=== PATIENT | female | born 1975 | race Hispanic/Latino ===

== ENCOUNTER 2022-07-16 06:59 | Day surgery (SDC) | payer BC ==
--- NOTE | 2022-07-15 14:27 | RAD REPORT ---
EXAM DESCRIPTION: Oneyda Trevizo And Lat (2 Views)07/15/2022 2:20 pm CLINICAL HISTORY: Preop for breast surgery COMPARISON: September 2021 FINDINGS: The lungs appear clear of acute infiltrate. The heart is normal size IMPRESSION: No acute abnormalities displayed
[2022-07-15 14:54] LABS: Absolute Lymphocytes (CBC) 2.4 K/uL (0.7-4.9); Hematocrit 39.6 % (36.0-45.0); Lymphocytes % 26.7 % (15.3-44.8); MCV 86.1 fL (80-100); MPV 9.6 fL (7.6-11.3)
[2022-07-15 15:04] LABS: Specific Gravity < 1.005 (1.005-1.030)
[2022-07-15 15:10] LABS: BUN Blood Urea Nitrogen 14 mg/dL (7-18); Bicarbonate 30 mmol/L (21-32); Glomerular Filtration Rate 113 ml/min (=/>90); Glucose Level 100 mg/dL (74-106); Potassium 3.4 mmol/L (3.5-5.1); Sodium Level 139 mmol/L (136-145)
[2022-07-15 16:40] LABS: HCG, Quantitative < 1 mIU/mL (1-3)
[2022-07-16] MEDS ORDERED: Ringers Lactate 1,000 ML IV ONE (07:26)
[2022-07-16] MEDS ORDERED: METHYLENE BLUE 0.5% 10 ML AMP ONE (07:52)
[2022-07-16] MEDS ORDERED: CEFAZOLIN SODIUM 1 GM/VIAL ONE (08:14)
[2022-07-16] MEDS ORDERED: propofoL 200 MG/20 ML VIAL IV ONE (08:56)
[2022-07-16] MEDS ORDERED: MIDAZOLAM HCL 2 MG/2 ML INJ ONE (08:56)
[2022-07-16] MEDS ORDERED: ONDANSETRON 4 MG/2 ML VIAL ONE (08:56)
[2022-07-16] MEDS ORDERED: FENTANYL CITR 100 MCG/2 ML ONE (08:56)
[2022-07-16] MEDS ORDERED: LIDOCAINE 2% MPF 5 ML VIAL ONE (08:56)
[2022-07-16] MEDS ORDERED: dexAMETHasone 10 MG/ML VIAL ONE (10:18)
[2022-07-16] MEDS ORDERED: KETOROLAC 30 MG/ML INJ ONE (10:19)
[2022-07-16] MEDS ORDERED: GLYCOPYRROLATE 0.2 MG/ML SYR ONE (11:03)
--- NOTE | 2022-07-16 11:03 | P.BOP ---
Preoperative diagnosis: right breast mass Postoperative diagnosis: same Primary procedure: Right breast lumpectomy neddle localized Tool Dresser: TONG MORGAN (RETAIL MARKETING EXECUTIVE) Estimated blood loss: <10cc Specimen: mass Findings: neddle and and clip within the specimen Anesthesia: General Complications: None Transferred to: Recovery Room Condition: Good
[2022-07-16] MEDS ORDERED: Mastisol Adhesive Liq ONE (11:12)
[2022-07-16 12:07] VITALS: O2SAT 100
[2022-07-16 12:19] VITALS: BP 134/84; TEMP 97.4
[2022-07-16] MEDS ORDERED: CODEINE 30MG/APAP 300MG TAB PO ONE (12:21)
[2022-07-16] MEDS ORDERED: CODEINE 30MG/APAP 300MG TAB ONE (12:26)
--- NOTE | 2022-07-16 13:01 | RAD REPORT ---
EXAM DESCRIPTION: [facility] BREAST NEEDLE LOCALIZATION - 07/16/2022 10:07 am CLINICAL HISTORY: Breast mass TECHNIQUE: Using grid guidance mammography the biopsy clip within the outer left breast was localize d Skin, subcutaneous and breast tissues anesthetized with lidocaine. A Kopan's needle was placed adjacent to the clip. A hook wire was then advanced through the needle an d the needle removed. Postprocedure mammography demonstrates the wire to lie adjacent to the clip. The patient then left for the surgical department IMPRESSION: Needle wire localization of a biopsy clip within right breast *
--- NOTE | 2022-07-16 13:02 | RAD REPORT ---
EXAM DESCRIPTION: [facility] BRE[facility] TISSUE S[facility] - 07/16/2022 11:05 am CLINICAL HISTORY: Breast mass IMPRESSION: The biopsy clip lies within the resected right breast tissue
--- NOTE | 2022-07-16 20:01 | OP ---
Date of Procedure: 07/16/2022 Surgeon: Thomas Tucker MD Body And Fender Worker: Keeley Rucker. Preoperative Diagnosis: Right breast mass suspicious for cancer. Postoperative Diagnosis: Right breast mass suspicious for cancer. Procedure: Right breast lumpectomy, needle localized. Estimated Blood Loss: Less than 10 cc. Specimen: Mass. Finding: Needle and clips within the specimen by Dr. Oliver. Anesthesia: General plus local. Indications: This is the case of a female who comes to us with an MRI showing findings suspicious fo r breast cancer. She had an MRI and a biopsy about 6 months ago, but when they repeated the MRI as a followup, there noticed some changes that are suspicious for cancer so they want a lumpectomy at thi s time. The benefits, alternatives, and risks of lumpectomy needle localized were fully explained to the patient, which include, but are not limited to infection, bleeding, damage to adjacent structure s, anesthesia complication, AL, and even . She also understands this may not relieve her sympto ms and she might need more than one surgical intervention. She understood and signed a consent. The patient went this morning to Radiology Suite, where she received localization of the lesion. The apolonia viveros already had a clip from another institution when they did a core biopsy 6 months ago. Procedure In Detail: The patient was brought to the operating room and placed in supine position. A nesthesia was given without complication. The right breast was prepped and draped in usual sterile f ashion making sure the wire remains intact. A curvilinear incision was made. We followed the wire a nd removed the tissue around the area. Some densities around the area of the specimen were also fatemeh iyn with the specimen adjacent to the lesion itself. The whole specimen came out as one unit and we sent that to the radiologist, who confirmed the lesion within the specimen with the clips and wire in tact. Irrigation was done in subcutaneous tissue. Hemostasis was obtained. Then after that we proc eeded to close the area with 3-0 chromic and 4-0 PDS. Sponge count and instrument counts were correc t. Patient tolerated the procedure well. Patient was sent to recovery in stable condition. DOMINGO/LACIE Voice ID: [id number] Report ID: [id number]
--- NOTE | 2022-07-16 20:01 | DS ---
Date of Discharge: 07/16/2022 Diagnosis: Right breast mass. Procedure: Right breast lumpectomy, needle localized. Disposition: Home. Activity: As tolerated. No heavy lifting. Follow Up: In my office in 1 week. Call for appointment at [phone]. Keep area dry and intact until she see us again. DOMINGO/LACIE Voice ID: [id number] Report ID: [id number]
--- NOTE | 2022-07-17 05:47 | EKG ---
Test Date: 2022-07-15 Test Time: 13:58:09 Iron Worker Apprentice: SUDHA MEASUREMENT RESULTS: Intervals: Rate: 67 NM: 130 QRSD: 74 QT: 408 QTc: 431 [place]: P: 62 NM: 130 QRS: 61 T: 67 INTERPRETIVE STATEMENTS: Normal sinus rhythm Normal ECG No previous ECG available for comparison Electronically Signed On 07-17-22 05:44:54 SMALL WIND ENERGY INSTALLER by Prabhu Ocampo
== END 2022-07-16 13:00 | disposition home or self-care (01) ==
LOC: OR 06:59
PROVIDERS: ATTEND Surgery
PROC: 0HBT0ZZ Excision of Right Breast, Open Approach (ICD-10-PCS; principal; 2022-07-16 09:15)
DX: N63.10 Unspecified lump in the right breast, unspecified quadrant (principal)
CPT/HCPCS: 19301; 93005; 85025; 80048; 36415; 81025 ×2; 88305; 84702; 71046; 76098; 19281; J2704; J2001; J2250; J3010; J1100; J7120; J2405; J0690; 88307; Q9968